=== PATIENT | female | born 1990 | race Caucasian/White ===

== ENCOUNTER 2022-08-26 18:22 | Emergency (ER) | payer OTHER ==
[~2022-08-26] VITALS: Ht 165.1 cm; Wt 77.1 kg
[~2022-08-26 18:22] MED LIST: MULVITMINE PO; NAPR500 PO; PENVK500 PO; PROC5S PR
[2022-08-26 18:57] LABS: BASOPHILS PERCENT AUTO 1 % (0-2); EOSINOPHILS ABSOLUTE AUTO 0.25 K/mm3 (0.00-0.68); EOSINOPHILS PERCENT AUTO 1 % (0-6); Hematocrit 41.7 % (33.0-51.0); Hemoglobin 13.4 g/dL (11.5-16.0); IMMATURE GRAN ABSOLUTE AUTO 0.07 K/mm3 (0.00-0.10); IMMATURE GRAN PERCENT AUTO 0 % (0-1); LYMPHOCYTES ABSOLUTE AUTO 4.09 K/mm3 (0.84-5.20); LYMPHOCYTES PERCENT AUTO 23 % (21-46); MONOCYTES ABSOLUTE AUTO 0.93 K/mm3 (0.16-1.47); MONOCYTES PERCENT AUTO 5 % (4-13); Mean Corpuscular HGB 30.7 pg (26.0-34.0); Mean Corpuscular HGB Conc 32.1 g/dL (31.5-36.5); Mean Corpuscular Volume 95 fL (80-100); NEUTROPHILS ABSOLUTE AUTO 12.11 K/mm3 (1.96-9.15); NEUTROPHILS PERCENT AUTO 69 % (41-73); Platelet Count 410 K/mm3 (150-400); RDW Coefficient Variation 13.3 % (11.7-14.2); RDW Standard Deviation 46.9 fL (35.1-46.3); Red Blood Cell Count 4.37 M/mm3 (3.80-5.20); White Blood Cell Count 17.55 K/mm3 (4.00-11.30)
[2022-08-26 19:10] LABS: Source, Urine Clean Catch
[2022-08-26 19:19] LABS: Albumin, Blood 3.7 g/dL (3.4-5.0); Albumin/Globulin Ratio 1.1 (0.8-1.8); Bilirubin, Total 0.3 mg/dL (0.1-1.0); Bun/Creatinine Ratio 11.9 (12.0-20.0); Calcium, Blood 9.2 mg/dL (8.5-10.1); Creatinine, Blood 0.67 mg/dL (0.40-1.00); Globulin, Blood 3.5 g/dL (2.2-4.0); Potassium, Blood 3.1 mmol/L (3.5-5.5); Total Protein, Blood 7.2 g/dL (6.4-8.2)
[2022-08-26 19:27] LABS: Appearance, Urine Hazy (Clear); Bilirubin, Urine Neg (Neg); Blood, Urine Neg (Neg); Color, Urine Yellow (P-Yellow); Glucose Qualitative, Urine Neg (Neg); Ketones, Urine 1+ (Neg); Leukocyte Esterase, Urine 1+ (Neg); Nitrite, Urine Neg (Neg); Protein, Urine 1+ (Neg); Urobilinogen, Urine 1+ (Normal)
[2022-08-26 19:50] LABS: Granular Casts 0-2 /lpf (0)
[2022-08-26 19:51] LABS: Amorphous Light (0-Heavy); Bacteria Few /hpf; Mucus Mod (0-Heavy); Red Blood Cells, Urine 0-2 /hpf (0-2); Squamous Epithelial Cells Mod /hpf (Few); White Blood Cells, Urine 0-2 /hpf (0-5)
== END 2022-08-27 01:09 | disposition home or self-care (01) ==
LOC: ER 18:22
PROVIDERS: Student in an Organized Health Care Education/Training Program
DX: R10.31 Right lower quadrant pain (principal); D72.829 Elevated white blood cell count, unspecified; F17.200 Nicotine dependence, unspecified, uncomplicated; Z98.51 Tubal ligation status
CPT/HCPCS: 36415; 74176; 76857; 80053; 81001; 81025; 83690; 85025; 87086; J1885; J3010